=== PATIENT | male | born 1975 | race Two or more races ===

== ENCOUNTER 2021-02-21 11:26 | Emergency (ER) | payer BC ==
--- NOTE | 2021-02-21 13:22 | EDM.PDOC ---
ED HPI GENERAL MEDICAL PROBLEM - General Stated Complaint: COVID SYMPTOMS Time Seen by Provider: 02/21/21 12:25 Source of Information: Reports: Patient History Limitations: Reports: No Limitations - History of Present Illness INITIAL COMMENTS - FREE TEXT/NARRATIVE: c/o COVID exposure lives alone, works for [employer], 2 of his co-workers tested positive for COVID in past 24 hours has loss of taste and loose stools, thinks he may have had a fever at home, no fever here altho took APAP 1.5h [facility] [place] h/o asthma but rare cough, no wheeze no other chronic health concerns, no Rx meds - Related Data Allergies Allergy/AdvReac Type Severity Reaction Status Date / Time No Known Allergies Allergy Verified 02/21/21 11:48 Home Meds: Home Meds NK [No Known Home Meds] 02/21/21 [History] Past Medical History Respiratory History: Reports: Asthma Social & Family History - Family History Family Medical History: No Pertinent Family History - Tobacco Use Tobacco Use Status *Q: Current Every Day Tobacco User Years of Tobacco use: 20 Packs/Tins Daily: 0.2 - Caffeine Use Caffeine Use: Reports: Coffee - Recreational Drug Use Recreational Drug Use: No ED ROS GENERAL - Review of Systems Review Of Systems: See Below Constitutional: Reports: No Symptoms HEENT: Reports: Other (loss of taste) Respiratory: Reports: No Symptoms Cardiovascular: Reports: No Symptoms Endocrine: Reports: No Symptoms GI/Abdominal: Reports: Diarrhea : Reports: No Symptoms Musculoskeletal: Reports: No Symptoms Skin: Reports: No Symptoms Neurological: Reports: No Symptoms Psychiatric: Reports: No Symptoms Hematologic/Lymphatic: Reports: No Symptoms Immunologic: Reports: No Symptoms ED EXAM, GENERAL - Physical Exam Exam: See Below Exam Limited By: No Limitations General Appearance: Alert, WD/WN, No Apparent Distress Eye Exam: Bilateral Eye: Normal Inspection Ears: Hearing Grossly Normal Nose: Normal Inspection, Normal Mucosa, No Blood Throat/Mouth: Normal Inspection, Normal Voice, No Airway Compromise Head: Atraumatic, Normocephalic Neck: Normal Inspection, Supple, Non-Tender, Full Range of Motion Respiratory/Chest: No Respiratory Distress, Lungs Clear, Normal Breath Sounds, Chest Non-Tender. No: Respiratory Distress, Decreased Breath Sounds, Crackles, Rales, Rhonchi, Wheezing, Stridor, Pleural Rub, Accessory Muscle Use, Retractions, Splinting, Prolonged Expiration Cardiovascular: Regular Rate, Rhythm, No Edema, No Murmur GI/Abdominal: Soft, Non-Tender, No Distention Back Exam: Normal Inspection, Full Range of Motion. No: CVA Tenderness (R), CVA Tenderness (L) Extremities: Normal Inspection, Normal Range of Motion, Non-Tender, No Pedal Edema Neurological: Alert, Oriented, CN II-XII Intact, Normal Cognition, No Motor/Sensory Deficits Psychiatric: Normal Affect, Normal Mood Skin Exam: Warm, Dry, Intact, Normal Color, No Rash Lymphatic: No Adenopathy Course - Vital Signs Last Recorded V/S: Last Vital Signs Temp 36.6 C 02/21/21 11:38 Pulse 77 02/21/21 13:28 Resp 18 02/21/21 11:38 BP 154/91 H 02/21/21 13:28 Pulse Ox 99 02/21/21 11:38 - Orders/Labs/Meds Orders: Active Orders 24 hr Category Date Time Status CORONAVIRUS (COVID19) [facility] Routine Lab 02/21/21 11:55 Received - Re-Assessments/Exams Free Text/Narrative Re-Assessment/Exam: 02/21/21 16:01 repeat BP improved, pt to see PCP and recheck BP Departure - Departure Time of Disposition: 13:17 Disposition: Home, Self-Care 01 Condition: Good Clinical Impression: Exposure to COVID-19 virus - Discharge Information *PRESCRIPTION DRUG MONITORING PROGRAM REVIEWED*: Not Applicable *COPY OF PRESCRIPTION DRUG MONITORING REPORT IN PATIENT LEIGH: Not Applicable Instructions: 3 [place] Steps to Take While Waiting for Your COVID-19 Test Result - [facility] (12/04/2020), 10 Things You Can Do to Manage Your COVID-19 Symptoms at Home - [facility] (12/11/2020), COVID-19: Quarantine vs. Isolation - [facility] (05/14/2020) Referrals: PCP,None [Primary Care Provider] - Forms: ED Department Discharge Additional Instructions: Your COVID test should be back in 2 days. Self-quarantine for 10 days even if it is negative. If you test is positive, you may return to work once you have had no fever for 7 days. Maintain 6 foot social distance. Use good handwashing. For discomfort, as needed, take ibuprofen 200 mg 3 tabs and acetaminophen 325 mg 3 tabs 4 times a day. See your doctor or return to Emergency Department if you are feeling worse. Sepsis Event Note (ED) - Evaluation Sepsis Screening Result: No Definite Risk - Focused Exam Vital Signs: Vital Signs Temp Pulse Resp BP Pulse Ox 02/21/21 13:28 77 154/91 H 02/21/21 11:38 36.6 C 102 H 18 161/102 H 99 - My Orders Last 24 Hours: My Active Orders 02/21/21 11:55 CORONAVIRUS (COVID19) [facility] Routine - Assessment/Plan Last 24 Hours: My Active Orders 02/21/21 11:55 CORONAVIRUS (COVID19) [facility] Routine
[2021-02-23 20:43] LABS: CORNONAVIRUS (COVID19) CSH-NRL Positive (Negative)
== END 2021-02-21 13:29 | disposition home or self-care (01) ==
LOC: FB.ED 11:26
DX: U07.1 COVID-19 (principal); F17.210 Nicotine dependence, cigarettes, uncomplicated
CPT/HCPCS: 99284; U0003

== ENCOUNTER 2021-08-16 16:13 | Emergency (ER) | payer OTHER, BC ==
[2021-08-16] MEDS ORDERED: Sodium Chloride 0.9% 10 ML Syringe FLUSH PRN (17:17)
[2021-08-16] MEDS ORDERED: ceFAZolin 2 GM in Premix Bag 1 BAG IV STA (17:17)
== END 2021-08-16 18:03 ==
LOC: FB.ED 16:13
DX: S62.634B Displaced fracture of distal phalanx of right ring finger, initial encounter for open fracture (principal); Z72.0 Tobacco use; W26.8XXA Contact with other sharp object(s), not elsewhere classified, initial encounter; Y99.0 Civilian activity done for income or pay
CPT/HCPCS: 64450; 73140; 96365; 99284; J0690; 99283

== ENCOUNTER 2025-03-30 08:06 | Emergency (ER) | payer BC, OTHER | END 2025-03-30 09:27 | disposition home or self-care (01) | LOC: FB.ED 08:06 | DX: S62.667B Nondisplaced fracture of distal phalanx of left little finger, initial encounter for open fracture (principal); F17.200 Nicotine dependence, unspecified, uncomplicated; Z79.899 Other long term (current) drug therapy; W23.1XXA Caught, crushed, jammed, or pinched between stationary objects, initial encounter; Y93.89 Activity, other specified; Y99.0 Civilian activity done for income or pay | CPT/HCPCS: 12001; 36415; 73140-F4; 99000; 99283; G0480 ==